=== PATIENT | female | born 1970 | race Two or more races ===

== ENCOUNTER 2017-08-22 08:03 | Outpatient (CLI) | payer OTHER | END 2017-08-22 09:05 | disposition home or self-care (01) | LOC: SONOGRAMA 08:03 | DX: R10.13 Epigastric pain (principal) ==

== ENCOUNTER 2017-11-23 12:08 | Emergency (ER) | payer OTHER ==
[~2017-11-23] VITALS: Ht 157.5 cm; Wt 77.1 kg
[2017-11-23] MEDS ORDERED: SYNTHROID75 MCG (12:28)
== END 2017-11-23 14:35 | disposition home or self-care (01) ==
LOC: ER 12:08
DX: S00.83XA Contusion of other part of head, initial encounter (principal); S10.83XA Contusion of other specified part of neck, initial encounter; W18.39XA Other fall on same level, initial encounter; Y93.89 Activity, other specified; Y92.091 Bathroom in other non-institutional residence as the place of occurrence of the external cause; Y99.8 Other external cause status

== ENCOUNTER 2022-03-05 08:45 | Outpatient (CLI) | payer OTHER ==
[~2022-03-05 08:45] MED LIST: SYNTHROID75 MCG
== END 2022-03-05 08:53 | disposition home or self-care (01) ==
LOC: SONOGRAMA 08:45
PROVIDERS: ATTEND Student in an Organized Health Care Education/Training Program
DX: E04.1 Nontoxic single thyroid nodule (principal)

== ENCOUNTER 2023-05-02 08:53 | Outpatient (CLI) | payer OTHER | END 2023-05-02 09:03 | disposition home or self-care (01) | LOC: RAD 08:53 | PROVIDERS: ATTEND Physical Medicine & Rehabilitation | DX: M54.17 Radiculopathy, lumbosacral region (principal); M25.552 Pain in left hip ==

== ENCOUNTER 2023-09-10 11:55 | Outpatient (CLI) | payer OTHER | END 2023-09-10 11:57 | disposition home or self-care (01) | LOC: RAD 11:55 | DX: M79.672 Pain in left foot (principal) ==

== ENCOUNTER 2023-12-05 13:20 | Outpatient (CLI) | payer OTHER | END 2023-12-05 13:22 | disposition home or self-care (01) | LOC: NUCLEAR 13:20 | PROVIDERS: ATTEND Internal Medicine Endocrinology, Diabetes & Metabolism | DX: M81.0 Age-related osteoporosis without current pathological fracture (principal); E04.9 Nontoxic goiter, unspecified; E66.01 Morbid (severe) obesity due to excess calories ==

== ENCOUNTER 2025-01-04 13:14 | Outpatient (CLI) | payer OTHER | END 2025-01-04 13:15 | disposition home or self-care (01) | LOC: SONOGRAMA 13:14 | PROVIDERS: ATTEND Internal Medicine Endocrinology, Diabetes & Metabolism | DX: E04.1 Nontoxic single thyroid nodule (principal) ==